=== PATIENT | male | born 1980 | race Caucasian/White ===

== ENCOUNTER 2019-12-21 09:50 | Outpatient (CLI) | payer BC ==
--- NOTE | 2019-12-21 10:08 | RAD ---
EXAM: XR Sacrum and Coccyx STANDARD DATE: 12/21/2019 12:00 AM INDICATION: Coccygeal pain COMPARISON: None. FINDING: No acute fracture or subluxation demonstrated. SI joints are normal appearing. 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 Small phleboliths are seen within the lower pelvis. IMPRESSION:No acute fracture or subluxation demonstrated.
== END 2019-12-21 09:51 | disposition home or self-care (01) ==
LOC: BICRAD 09:50
PROVIDERS: ATTEND Physician Assistant Medical
DX: M53.3 Sacrococcygeal disorders, not elsewhere classified (principal); K62.89 Other specified diseases of anus and rectum; K59.00 Constipation, unspecified
CPT/HCPCS: 72220

== ENCOUNTER 2022-11-13 11:55 | Outpatient (CLI) | payer BC | END 2022-11-13 11:56 | disposition home or self-care (01) | LOC: BICRAD 11:55 | PROVIDERS: ATTEND Neurological Surgery | DX: M54.50 Low back pain, unspecified (principal) | CPT/HCPCS: 72120 ==

== ENCOUNTER 2023-06-03 16:48 | Outpatient (CLI) | payer BC | END 2023-06-03 16:49 | disposition home or self-care (01) | LOC: SCSRAD 16:48 | PROVIDERS: ATTEND Physician Assistant | DX: R05.3 Chronic cough (principal) | CPT/HCPCS: 71046 ==

== ENCOUNTER 2023-07-16 17:00 | Outpatient (CLI) | payer BC | END 2023-07-16 17:01 | disposition home or self-care (01) | LOC: SLEEPLAB 17:00 | PROVIDERS: ATTEND Internal Medicine Critical Care Medicine | DX: R06.83 Snoring (principal); K21.9 Gastro-esophageal reflux disease without esophagitis | CPT/HCPCS: 95800 ==

== ENCOUNTER 2023-11-27 16:42 | Outpatient (CLI) | payer BC | END 2023-11-27 16:43 | disposition home or self-care (01) | LOC: SCSRAD 16:42 | PROVIDERS: ATTEND Physician Assistant | DX: S99.911A Unspecified injury of right ankle, initial encounter (principal) ==

== ENCOUNTER 2024-02-29 11:35 | Outpatient (CLI) | payer BC | END 2024-02-29 11:36 | disposition home or self-care (01) | LOC: SCSRAD 11:35 | PROVIDERS: ATTEND Family Medicine | DX: S89.92XA Unspecified injury of left lower leg, initial encounter (principal) ==